=== PATIENT | female | born 1950 | race Caucasian/White ===

== ENCOUNTER 2023-03-14 10:17 | Emergency (ER) | payer MEDICARE ==
[~2023-03-14] VITALS: Ht 154.9 cm; Wt 51.7 kg
[2023-03-14] MEDS ORDERED: 0.9%NACL 1000ML 1,000 ML IV ONE (11:00)
[2023-03-14 11:01] LABS: BASOPHILS % (AUTO) 0.4 % (0.0-5.0); HEMATOCRIT 32.3 % (36-48); LYMPHOCYTES % (AUTO) 10.2 % (21.0-51.0); MEAN CORPUSCULAR HEMOGLOBIN 29.2 pg (27.0-33.0); MEAN CORPUSCULAR HGB CONC 33.4 g/dL (32.0-36.0); MEAN CORPUSCULAR VOLUME 87.3 fL (79-99); MONOCYTES % (AUTO) 6.1 % (3.0-13.0); NEUTROPHILS % (AUTO) 83.1 % (40.0-77.0); PLATELET COUNT (AUTO) 306 K/uL (130-400); RED CELL DISTRIBUTION WIDTH 12.9 % (11.0-15.5)
[2023-03-14 11:21] LABS: ALBUMIN 2.6 g/dL (3.5-5.0); CREATININE 1.3 mg/dL (0.5-1.5); TOTAL PROTEIN, SERUM 6.4 g/dL (6.0-8.3)
[2023-03-14 11:25] LABS: POTASSIUM 2.9 mmol/L (3.5-5.1)
[2023-03-14] MEDS ORDERED: POTASSIUM CHLORIDE 20 MEQ/100 ML BAG IV SCH (12:30)
[2023-03-14 13:17] VITALS: O2SAT 97
[2023-03-14 15:18] VITALS: BP 128/57; PULSE 75; RESP 14
== END 2023-03-14 15:25 | disposition home or self-care (01) ==
LOC: EDH 10:17
DX: I10 Essential (primary) hypertension (principal); E87.6 Hypokalemia; E11.9 Type 2 diabetes mellitus without complications; E78.00 Pure hypercholesterolemia, unspecified; Z90.49 Acquired absence of other specified parts of digestive tract; Z98.890 Other specified postprocedural states
CPT/HCPCS: 99285; 96365; 70450; 71045; 96361; 96366; 82550; 83874; 84484; 80053; 83880; 85025; 36415; 93005; J7030; J3480